=== PATIENT | male | born 1970 | race Caucasian/White ===

== ENCOUNTER 2018-12-25 09:38 | Emergency (ER) | payer OTHER ==
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
[2018-12-25] MEDS ORDERED: LET GEL TOPICAL 1 EA SYR TP ONE (11:31)
[2018-12-25] MEDS ORDERED: SKIN ADHESIVE (DERMABOND) 1 EACH TP ONE (11:41)
[2018-12-25 11:42] VITALS: BP 154/89
== END 2018-12-25 12:05 | disposition home or self-care (01) ==
PROC: 0HQ0XZZ Repair Scalp Skin, External Approach (ICD-10-PCS; principal; 2018-12-25)
DX: S01.01XA Laceration without foreign body of scalp, initial encounter (principal); S50.312A Abrasion of left elbow, initial encounter; R68.84 Jaw pain; M79.641 Pain in right hand; Y04.8XXA Assault by other bodily force, initial encounter; Y92.9 Unspecified place or not applicable; Y93.9 Activity, unspecified; Y99.9 Unspecified external cause status
CPT/HCPCS: L3807